=== PATIENT | female | born 1945 | race Caucasian/White ===

== ENCOUNTER → 2017-01-20 | Outpatient (CLI) | payer MEDICARE, BC ==
--- NOTE | 2017-01-21 09:58 | MM ---
Reason for exam: history of breast augmentation, asymptomatic. Last mammogram was performed 1 year and 11 months ago. History: Patient is postmenopausal. Family history of breast cancer in aunt at age 60 and breast cancer in mother at age 68. Benign excisional biopsy of the right breast, 1971. Saline implants in both breasts, 1969. Benign excisional biopsy of the left breast. Took estrogen for 1 year beginning at age 49. Took progesterone for 2 years beginning at age 48. Physical Findings: A clinical breast exam by your physician is recommended on an annual basis and results should be correlated with mammographic findings. MG 3D Screen Mammo Imp/Cad Bilateral CC, MLO, and ID view(s) were taken. Prior study comparison: February 08, 2015, bilateral MG screening mammo implant/CAD. February 07, 2013, CAD bilateral diagnostic mammogram. There are scattered fibroglandular densities. No significant changes when compared with prior studies. ASSESSMENT: Benign, BI-RAD 2 RECOMMENDATION: Routine screening mammogram of both breasts in 1 year.
== END | disposition home or self-care (01) ==
LOC: RADMAMWWP 08:54
PROVIDERS: ATTEND Internal Medicine
DX: Z12.31 Encounter for screening mammogram for malignant neoplasm of breast (principal)
CPT/HCPCS: 77063; G0202

== ENCOUNTER → 2018-11-04 | Outpatient (CLI) | payer MEDICARE, OTHER ==
--- NOTE | 2018-11-04 17:33 | BD ---
EXAMINATION TYPE: Axial Bone Density DATE OF EXAM: 11/04/2018 COMPARISON: NONE CLINICAL HISTORY: 73-year-old female bone disorders Height: 59 inches Weight: 145 FRAX RISK QUESTIONS: Alcohol (3 or more units per day): no Family History (Parent hip fracture): no Glucocorticoids (More than 3mos): no (Ex: prednisone, prednisolone, methylprednisolone, dexamethasone, and hydrocortisone). History of Fracture in Adulthood: no Secondary Osteoporosis: 1. Type 1 Diabetes: no 2. Hyperthyroidism: no 3. Menopause before 45: no 4. Malnutrition: no 5. Chronic liver disease: no Rheumatoid Arthritis: no Current Tobacco Use: no RISK FACTORS HISTORY OF: Family History of Osteoporosis: no Active: yes Diet low in dairy products/other sources of calcium: no Postmenopausal woman: yes Take estrogen and/or progesterone medications: not now How long: estrogen age 49-50, progesterone age 48-50 Lost more than 2 inches in height since high school: no Frequent falls: no Poor Health: no Hyperparathyroidism: no Adrenal Insufficiency: no MEDICATIONS: Prednisone or other steroids: no Thyroid Medications: no Osteoporosis Medications: no Additional Medications: Vitamin D & Fish Oil, Cholesterol med Additional History: EXAM MEASUREMENTS: Bone mineral densitometry was performed using the [employer]. Bone mineral density as measured about the Lumbar spine is: ----- L1-L4(G/cm2): 1.081 T Score Values are as follows: ----- L2: -1.2 ----- L3: -0.5 ----- L4: -0.8 ----- L1-L4: -0.8 Bone mineral density not previously done at this facility; done previously at office of a local physi [facility] Bone mineral density about the R hip (g/cm2): 0.735 Bone mineral density about the L hip (g/cm2): 0.758 T Score values are as follows: -----R Neck: -2.2 -----L Neck: -2.0 -----R Total: -0.5 -----L Total: -0.7 Bone mineral density not previously done at this facility; done previously at office of a local physi [facility] IMPRESSION: Osteopenia (T Score between -2.5 and -1). There is slightly increased risk of fracture and the patient may be considered for treatment. Re-Screen 2-5 years. NOTE: T-SCORE=SD OF THE YOUNG ADULT MEAN.
--- NOTE | 2018-11-09 09:37 | MM ---
Reason for exam: screening (asymptomatic). Last mammogram was performed 1 year and 9 months ago. History: Patient is postmenopausal. Family history of breast cancer in aunt at age 60 and breast cancer in mother at age 68. Benign excisional biopsy of the right breast, 1971. Saline implants in both breasts, 1969. Benign excisional biopsy of the left breast. Took estrogen for 1 year beginning at age 49. Took progesterone for 2 years beginning at age 48. Physical Findings: A clinical breast exam by your physician is recommended on an annual basis and results should be correlated with mammographic findings. MG 3D Screen Mammo Imp/Cad Bilateral CC, MLO, and ID view(s) were taken. Prior study comparison: January 20, 2017, bilateral MG 3d screen mammo imp/cad. February 08, 2015, bilateral MG screening mammo implant/CAD. The breast tissue is heterogeneously dense. This may lower the sensitivity of mammography. No suspicious abnormality. Bilateral prepectoral silicone implants are present. No significant changes when compared with prior studies. ASSESSMENT: Negative, BI-RAD 1 RECOMMENDATION: Routine screening mammogram of both breasts in 1 year.
== END | disposition home or self-care (01) ==
LOC: RADMAMWWP 12:33
PROVIDERS: ATTEND Internal Medicine
DX: Z12.31 Encounter for screening mammogram for malignant neoplasm of breast (principal); M85.80 Other specified disorders of bone density and structure, unspecified site
CPT/HCPCS: 77063; 77067; 77080

== ENCOUNTER → 2020-11-12 | Outpatient (CLI) | payer MEDICARE ==
--- NOTE | 2020-11-14 11:50 | MM ---
Reason for exam: screening (asymptomatic). Last mammogram was performed 2 years ago. History: Patient is postmenopausal. Family history of breast cancer in aunt at age 60 and breast cancer in mother at age 68. Benign excisional biopsy of the right breast, 1971. Saline implants in both breasts, 1969. Benign excisional biopsy of the left breast. Took estrogen for 1 year beginning at age 49. Took progesterone for 2 years beginning at age 48. Physical Findings: A clinical breast exam by your physician is recommended on an annual basis and results should be correlated with mammographic findings. MG 3D Screen Mammo Imp/Cad Bilateral CC, MLO, and ID view(s) were taken. Prior study comparison: November 04, 2018, bilateral MG 3d screen mammo imp/cad. January 20, 2017, bilateral MG 3d screen mammo imp/cad. There are scattered fibroglandular densities. Bilateral silicone subglandular implants with calcifications, stable. No significant changes when compared with prior studies. ASSESSMENT: Benign, BI-RAD 2 RECOMMENDATION: Routine screening mammogram of both breasts in 1 year.
== END | disposition home or self-care (01) ==
LOC: RADMAMWWP 15:27
PROVIDERS: ATTEND Family Medicine
DX: Z12.31 Encounter for screening mammogram for malignant neoplasm of breast (principal); Z78.0 Asymptomatic menopausal state; Z80.3 Family history of malignant neoplasm of breast
CPT/HCPCS: 77063; 77067

== ENCOUNTER → 2021-01-07 | Outpatient (CLI) | payer MEDICARE ==
--- NOTE | 2021-01-07 12:28 | BD ---
EXAMINATION TYPE: Axial Bone Density DATE OF EXAM: 01/07/2021 COMPARISON: 11.04.2018 CLINICAL HISTORY: 75 YR OLD FEMALE......ICD-10 CODE: M89.9 DISORDER OF BD Height: 58.8 Weight: 143 FRAX RISK QUESTIONS: NOTHING TO NOTE HERE RISK FACTORS HISTORY OF: Postmenopausal woman: YES, AT ABOUT 48 YRS OLD Hyperparathyroidism: NO Adrenal Insufficiency: NO MEDICATIONS: Additional Medications: VIT D AND MULTIVITAMIN, METFORMIN, STATIN FOR CHOLESTEROL, Additional History: DIABETIC, CHOLESTEROL, EXAM MEASUREMENTS: Bone mineral densitometry was performed using the [employer] System. Bone mineral density as measured about the Lumbar spine is: ----- L1-L4(G/cm2): 1.112 T Score Values are as follows: ----- L1: -1.3 ----- L2: -0.8 ----- L3: -0.2 ----- L4: -0.3 ----- L1-L4: -0.6 Bone mineral density has: Increased 4.2% since study of: 11.04.2018 Bone mineral density about the R hip (g/cm2): 0.908 Bone mineral density about the L hip (g/cm2): 0.913 T Score values are as follows: -----R Neck: -2.2 -----L Neck: -2.3 -----R Total: -0.8 -----L Total: -0.8 Bone mineral density has: Decreased -2.5% since study of: 11.04.2018 FRAX%s: THERE IS A 14.9% CHANCE FOR A MAJOR OSTEOPOROTIC FX AND A 4.3% FOR HIP.....PROBABILITY FOR FX IN 10 YRS TIME IMPRESSION: No evidence for osteoporosis or osteopenia. NOTE: T-SCORE=SD OF THE YOUNG ADULT MEAN.
== END | disposition home or self-care (01) ==
LOC: RADBDWWP 07:53
PROVIDERS: ATTEND Family Medicine
DX: M89.9 Disorder of bone, unspecified (principal)
CPT/HCPCS: 77080

== ENCOUNTER → 2022-12-26 | Outpatient (CLI) | payer MEDICARE ==
--- NOTE | 2022-12-29 08:08 | MM ---
Reason for Exam: Screening (asymptomatic). Last mammogram was performed 2 year(s) and 2 month(s) ago. Patient History: Menarche at age 13. First Full-Term at age 19. Postmenopausal. Patient has history of breast feeding. Estrogen for 1 year from age 49 until age 50. Progesterone for 2 years from age 48 until age 50. 1972, Benign Excisional Biopsy on the right side. Benign Excisional Biopsy on the left side. 1970, Bilateral Implants. Maternal aunt had breast cancer, age 60. Mother had breast cancer, age 68. Risk Values: Shayna 5 year model risk: 4.9%. NCI Lifetime model risk: 9.1%. Prior Study Comparison: 02/08/2015 Bilateral Screening Mammogram, [facility]. 01/20/2017 Bilateral Screening Mammogram, [facility]. 11/04/2018 Bilateral Screening Mammogram, [facility]. 11/12/2020 Bilateral Screening Mammogram, [facility]. Tissue Density: The breast tissue is heterogeneously dense. This may lower the sensitivity of mammography. Findings: Analyzed By CAD. Bilateral breast implants. Implants appear intact. There is no suspicious group of microcalcifications or new suspicious mass in either breast. Overall Assessment: Negative, BI-RAD 1 Management: Screening Mammogram of both breasts in [address] [facility] will attempt to contact patient to return for supplemental views and ultrasound if indicated. Patient should continue monthly self-breast exams. A clinical breast exam by your physician is recommended on an annual basis. This exam should not preclude additional follow-up of suspicious palpable abnormalities. Note on Shayna scores and lifetime risk: 1. A Shayna score greater than 3% is considered moderate risk. If this is the case, consider specialist referral to assess eligibility for a risk reducing agent. 2. If overall lifetime risk for the development of breast cancer is 20% or higher, the patient may qualify for future screening with alternating mammogram and breast MRI. Electronically signed and approved by: Taras Bergeron DO
== END | disposition home or self-care (01) ==
LOC: RADMAMWWP 13:22
PROVIDERS: ATTEND Family Medicine
DX: Z12.31 Encounter for screening mammogram for malignant neoplasm of breast (principal); Z78.0 Asymptomatic menopausal state; Z80.3 Family history of malignant neoplasm of breast
CPT/HCPCS: 77063; 77067